=== PATIENT | female | born 1985 | race Caucasian/White ===

== ENCOUNTER 2017-04-26 10:18 | Emergency (ER) | payer MEDICAID ==
[~2017-04-26] VITALS: Ht 165.1 cm; Wt 103.0 kg
[~2017-04-26 10:18] MED LIST: IBUP-1 PO; IBUP800T; LEUP3.75 IM; ONDA4TAB10 PO; ONDA4TAB7; OXYC10TA6 PO; OXYC30TA PO; PENI500T PO
[2017-04-26 10:19] VITALS: BP 120/78
[2017-04-26] MEDS ORDERED: DEXAMETHASONE 4 MG TABLET PO ONE (11:00)
[2017-04-26] MEDS ORDERED: DEXAMETHASONE 4 MG TABLET ONE (11:00)
[2017-04-26] MEDS ORDERED: SODIUM CHLORIDE FLUSH 10ML SYR IVF ONE (11:30)
[2017-04-26 12:01] LABS: HEMATOCRIT 41.8 % (34.6-47.8); HEMOGLOBIN 14.1 g/dL (11.7-16.4); WHITE BLOOD COUNT 8.9 x10^3/uL (3.4-10)
[2017-04-26] MEDS ORDERED: HYDROcodone/APAP 5/325 TABLET ONE (12:08)
[2017-04-26 12:11] LABS: BLOOD UREA NITROGEN 10 mg/dL (7-18)
[2017-04-26] MEDS ORDERED: OMNIPAQUE 350 MG/ML, 100ML BOTTLE ONE (13:08)
== END 2017-04-26 13:48 | disposition home or self-care (01) ==
LOC: ED 13:40
DX: J02.9 Acute pharyngitis, unspecified (principal)
CPT/HCPCS: 36415; 70360; 70491; 80048; 82040; 85025; 99285; Q9967

== ENCOUNTER 2018-02-05 10:12 | Emergency (ER) | payer MEDICAID, OTHER ==
[~2018-02-05] VITALS: Ht 162.6 cm; Wt 98.6 kg
[~2018-02-05 10:12] MED LIST changes: -IBUP-1 PO; +IBUP-11 PO; +IBUP-1223; -IBUP800T
[2018-02-05 10:13] VITALS: BP 123/86
[2018-02-05 11:11] LABS: RAPID INFLUENZA A Negative (Negative); RAPID INFLUENZA B Negative (Negative)
== END 2018-02-05 11:25 | disposition home or self-care (01) ==
LOC: ED 10:34
DX: J02.8 Acute pharyngitis due to other specified organisms (principal); M79.1 Myalgia; B97.89 Other viral agents as the cause of diseases classified elsewhere
CPT/HCPCS: 87081; 87400; 87880; 99284

== ENCOUNTER 2020-08-27 16:33 | Emergency (ER) | payer MEDICAID ==
[~2020-08-27] VITALS: Ht 162.6 cm; Wt 105.4 kg
[~2020-08-27 16:33] MED LIST changes: -OXYC30TA PO; +OXYC30TA3 PO
--- NOTE | 2020-08-27 17:10 | NUR ---
YOMAIRA RN: PT TAKEN TO ROOM. CSPINE PRECAUTIONS IN PLACE.
--- NOTE | 2020-08-27 17:25 | NUR ---
assumed care of pt. pt her for VAZQUEZ and neck pain. pt states that she wnt to for eval today of pain aftr a fall 2 days ago when she slipped on the ice and fell backwards hitting her head. denies LOC, no vomiting. ambulatory and TAMAYO without difficuty C-collar placed in triage. pt declined ice pack at this time SO at bedside
[2020-08-27] MEDS ORDERED: HYDROcodone/APAP 5/325 TABLET PO ONE (17:30)
[2020-08-27] MEDS ORDERED: KETOROLAC 30 MG/1 ML IM ONE (17:30)
[2020-08-27] MEDS ORDERED: DIAZEPAM 5 MG TABLET PO ONE (17:30)
[2020-08-27] MEDS ORDERED: LAMO100T5 PO (17:30)
--- NOTE | 2020-08-27 17:35 | NUR ---
lab has been to bedside to draw. Carissa MCKINNEY has been tobedsid to discuss POC with pt. pain meds to be held until aftr imaging completed. pt verbalized understanding pt to CT via alice
[2020-08-27] MEDS ORDERED: DIAZEPAM 5 MG TABLET ONE (18:19)
[2020-08-27] MEDS ORDERED: HYDROcodone/APAP 5/325 TABLET ONE (18:20)
--- NOTE | 2020-08-27 18:33 | NUR ---
pt has been medicated per FAYE WOLF. pt advised not to drive after medications, pt verablized understanding. SO at bedside to drive her home
[2020-08-27] MEDS ORDERED: KETOROLAC 30 MG/1 ML ONE (18:36)
--- NOTE | 2020-08-27 18:56 | NUR ---
pt has been medicated and updated on POC report to Mayelin SOUZA
--- NOTE | 2020-08-27 18:58 | NUR ---
bedside report from steven rn, pt care transferred at this time. pt nad, resting on gurney, states pain is slightly decreased, pt denies additional needs at this time, bed in lowest, call light on lap, SO at BS, chart up for recheck, fab.
[2020-08-27] MEDS ORDERED: LIDODERM 5% PATCH TD ONE ×2 (19:10→20:00)
[2020-08-27] MEDS ORDERED: HYDROmorphone 1 MG/ML, 1ML INJ ONE (19:11)
[2020-08-27] MEDS: HYDROmorphone 1 MG/ML, 1ML INJ IM ONE ×2 (19:15→19:47)
[2020-08-27 19:48] VITALS: BP 116/57
--- NOTE | 2020-08-27 19:50 | NUR ---
Patient given discharge instructions and they have confirmed that they understand the instructions. Patient ambulatory with steady gait. nad, denies additional questiosn or needs at this time. states medications helped with pain. no personal belongings left in room after dc.
== END 2020-08-27 19:52 | disposition home or self-care (01) ==
LOC: ED 18:03
DX: S16.1XXA Strain of muscle, fascia and tendon at neck level, initial encounter (principal); S09.90XA Unspecified injury of head, initial encounter; R56.9 Unspecified convulsions; R11.2 Nausea with vomiting, unspecified; Z87.11 Personal history of peptic ulcer disease; Z87.891 Personal history of nicotine dependence; W01.0XXA Fall on same level from slipping, tripping and stumbling without subsequent striking against object, initial encounter; Y93.89 Activity, other specified; Y92.410 Unspecified street and highway as the place of occurrence of the external cause; Y99.8 Other external cause status
CPT/HCPCS: 36415; 70450; 72125; 84703; 96372; 99285; J1170; J1885; 99284

== ENCOUNTER 2021-02-04 15:47 | Emergency (ER) | payer MEDICAID ==
[~2021-02-04] VITALS: Ht 162.6 cm; Wt 91.0 kg
[~2021-02-04 15:47] MED LIST changes: +LAMO100T5 PO
[2021-02-04] MEDS ORDERED: KETOROLAC 30 MG/1 ML IVPush ONE (16:30)
[2021-02-04] MEDS ORDERED: SODIUM CHLORIDE 0.9% 1,000ML IVBOLUS ONE (16:30)
[2021-02-04] MEDS ORDERED: ONDANSETRON 2MG/ML, 2ML IVPush ONE (16:30)
[2021-02-04] MEDS ORDERED: KETOROLAC 30 MG/1 ML ONE (16:39)
[2021-02-04] MEDS ORDERED: ONDANSETRON 2MG/ML, 2ML ONE (16:39)
[2021-02-04 16:48] LABS: MICROSCOPIC INDICATED
[2021-02-04 16:53] LABS: BASOPHILS % (AUTO) 0 % (0-1); EOSINOPHILS % (AUTO) 1 % (1-7); LYMPHOCYTES % (AUTO) 19 % (22-44); MEAN CORPUSCULAR HGB CONC 34.5 g/dL (32.4-35.8); MEAN PLATELET VOLUME 8.4 fL (7.4-10.4); MONOCYTES % (AUTO) 5 % (2-9); NEUTROPHILS % (AUTO) 75 % (42-75); PLATELET COUNT 235 x10^3/uL (130-400); RED BLOOD COUNT 4.87 x10^6/uL (3.82-5.3); RED CELL DISTRIBUTION WIDTH 13.7 % (9.6-15.2)
[2021-02-04 16:55] LABS: ANION GAP 9 mmol/L (5-15); CHLORIDE 110 mmol/L (98-107); CREATININE 0.68 mg/dL (0.55-1.02)
[2021-02-04 16:58] LABS: MD NO
--- NOTE | 2021-02-04 17:01 | NUR ---
PT ATTACHED TO MONITORS, HR 40'S, SAUNDRA MCKINNEY NOTIFED. EKG PREFORMED
--- NOTE | 2021-02-04 17:05 | NUR ---
L flank pain constant. Unable to urinate x 20 hours. Prior to this painful urination. PT URINE BLOODY. SENT TO LAB. APPROX 60 CC URINATION. BLADDER SCAN SHOWS 0 CC AFTER VOID. PT MEDICATED PER EMAR.
[2021-02-04] MEDS ORDERED: THIAMINE 100MG TABLET PO ONE (17:30)
[2021-02-04 17:42] LABS: AMPHETAMINE SCREEN, URINE Negative (Negative); BARBITURATE SCREEN, URINE Negative (Negative); BENZODIAZEPINE SCREEN, URINE Negative (Negative); CANNABINOID SCREEN, URINE Positive (Negative); COCAINE SCREEN, URINE Negative (Negative); METHADONE SCREEN, URINE Negative (Negative); OPIATE SCREEN, URINE Negative (Negative)
[2021-02-04 18:50] VITALS: BP 111/64
--- NOTE | 2021-02-04 18:51 | NUR ---
Patient given discharge instructions and they have confirmed that they understand the instructions. Patient ambulatory with steady gait.
--- NOTE | 2021-02-04 19:12 | NUR ---
DISCHARGE INSTRUCTIONS REVIEWED WITH PT. ALL QUESTIONS ANSWERED AT THIS TIME.
== END 2021-02-04 19:14 | disposition home or self-care (01) ==
LOC: ED 19:09
DX: N30.01 Acute cystitis with hematuria (principal); R00.1 Bradycardia, unspecified; Z90.710 Acquired absence of both cervix and uterus; F17.210 Nicotine dependence, cigarettes, uncomplicated
CPT/HCPCS: 36415; 74176; 80048; 80307; 81001; 82040; 84443; 85025; 87086; 93005; 96361; 96374; 96375; 99285; J1885; J2405; J7030

== ENCOUNTER 2021-02-15 21:43 | Emergency (ER) | payer MEDICAID ==
[~2021-02-15] VITALS: Ht 165.1 cm; Wt 95.0 kg
--- NOTE | 2021-02-15 21:54 | NUR ---
PT FROM TRIAGE TO WALL NO BEDS AVAILABLE AT THIS TIME, PT IN FULL VIEW OF THIS RN
--- NOTE | 2021-02-15 22:25 | NUR ---
THIS IS A 35F BIB EMS FROM HOME FOR SUDDEN ONSET BILAT UPPER QUAD ABD PAIN, PT HAS HX OF GASTRIC SX 3 MONTHS AGO. PT CONNECTED TO ALL MONITORING, PER EMS PT GOT 100 OF FET. ERP TO BEDSIDE FOR EVAL
[2021-02-15] MEDS ORDERED: ONDANSETRON ODT 4 MG PO ONE (22:30)
[2021-02-15] MEDS ORDERED: MAALOX/HYOSCYAMINE/LIDOCAINE 45 ML BTL PO ONE (22:30)
[2021-02-15] MEDS ORDERED: MAALOX/HYOSCYAMINE/LIDOCAINE 45 ML BTL ONE (22:45)
[2021-02-15] MEDS ORDERED: ONDANSETRON ODT 4 MG ONE (22:45)
[2021-02-15] MEDS ORDERED: ONDANSETRON ODT 8 MG ONE (22:50)
--- NOTE | 2021-02-15 22:52 | NUR ---
PT MEDICATED PER MAR
[2021-02-15 22:54] LABS: BASOPHILS % (AUTO) 0 % (0-1); EOSINOPHILS % (AUTO) 1 % (1-7); LYMPHOCYTES % (AUTO) 13 % (22-44); MEAN CORPUSCULAR HEMOGLOBIN 30.6 pg (27.0-34.8); MEAN CORPUSCULAR HGB CONC 33.8 g/dL (32.4-35.8); MEAN PLATELET VOLUME 8.4 fL (7.4-10.4); MONOCYTES % (AUTO) 6 % (2-9); NEUTROPHILS % (AUTO) 81 % (42-75); PLATELET COUNT 205 x10^3/uL (130-400); RED BLOOD COUNT 5.34 x10^6/uL (3.82-5.3); RED CELL DISTRIBUTION WIDTH 14.4 % (9.6-15.2)
[2021-02-15 23:01] LABS: ALANINE AMINOTRANSFERASE 40 U/L (12-78); ALBUMIN 4.3 g/dL (3.4-5.0); ANION GAP 10 mmol/L (5-15); CALCIUM 9.5 mg/dL (8.5-10.1); CHLORIDE 108 mmol/L (98-107); CREATININE 0.62 mg/dL (0.55-1.02)
[2021-02-15 23:02] LABS: MD NO
[2021-02-15 23:03] LABS: ALKALINE PHOSPHATASE 59 U/L (45-117); BILIRUBIN,TOTAL 0.8 mg/dL (0.2-1.0); TOTAL PROTEIN 7.9 g/dL (6.4-8.2)
[2021-02-15] MEDS ORDERED: KETOROLAC 30 MG/1 ML ONE (23:25)
[2021-02-15 23:28] VITALS: BP 116/81
[2021-02-15] MEDS ORDERED: KETOROLAC 30 MG/1 ML IVPush ONE (23:30)
--- NOTE | 2021-02-15 23:31 | NUR ---
WHEN RN ENTERED ROOM PT SHOUTING AT RN ABOUT MEDICATIONS AND MD. STS "HOW FUCKING HARD IS IT TO BE COMPASSIONATE AND GIVE ME SOMETHING I'M IN SO MUCH PAIN NOW" PT VSS AT BEDSIDE.
--- NOTE | 2021-02-15 23:33 | NUR ---
PT MEDICATED REQUESTED
--- NOTE | 2021-02-15 23:40 | NUR ---
PT OUT OF ROOM STS PT ATTEMPTING TO CALL SURG OFFICE AND WANTS ERP TO PAGE THEM, ERP UPDATED OF SITUATION, NO CHANGE IN POC AT THIS TIME
--- NOTE | 2021-02-15 23:56 | NUR ---
ERP TO BEDSIDE FOR POC, PT ANGRY AND SHOUTING AT PROVIDER AND RN ABOUT WANTING MORE DONE.
--- NOTE | 2021-02-16 00:01 | NUR ---
Patient/Caregiver given discharge instructions and they have confirmed that they understand the instructions. Patient ambulatory with steady gait. NAD, all questions answered appropriately, denies additional needs at this time. No personal belongings left in room after discharge.
== END 2021-02-16 00:05 | disposition home or self-care (01) ==
LOC: ED 23:37
DX: K29.00 Acute gastritis without bleeding (principal); Z87.891 Personal history of nicotine dependence
CPT/HCPCS: 36415; 80053; 83690; 85025; 96374; 99283; J1885; Q0162